=== PATIENT | female | born 1960 | race Caucasian/White ===

== ENCOUNTER 2023-12-18 10:26 | Day surgery (SDC) | payer BC ==
[2023-12-10 12:31] VITALS: BMI 27.4
[2023-12-18 11:48] VITALS: TEMP 97.5
[2023-12-18 12:42] VITALS: BP 124/66; PULSE 75; RESP 17
== END 2023-12-18 12:42 | disposition home or self-care (01) ==
LOC: FASU-ENDO 10:26
PROVIDERS: ATTEND Internal Medicine Gastroenterology
PROC: 0DBK8ZX Excision of Ascending Colon, Via Natural or Artificial Opening Endoscopic, Diagnostic (ICD-10-PCS; principal; 2023-12-18 11:33)
DX: Z12.11 Encounter for screening for malignant neoplasm of colon (principal); K63.5 Polyp of colon; K64.1 Second degree hemorrhoids
CPT/HCPCS: 88305-TC